=== PATIENT | male | born 1990 | race Caucasian/White ===

== ENCOUNTER 2016-10-01 07:18 | Emergency (ER) | payer OTHER | END 2016-10-01 08:26 | disposition home or self-care (01) | LOC: D.ER 07:18 | DX: J01.90 Acute sinusitis, unspecified (principal); F17.200 Nicotine dependence, unspecified, uncomplicated ==

== ENCOUNTER 2016-12-12 08:12 | Emergency (ER) | payer OTHER | END 2016-12-12 10:19 | disposition home or self-care (01) | LOC: D.ER 08:12 | DX: S60.011A Contusion of right thumb without damage to nail, initial encounter (principal); X58.XXXA Exposure to other specified factors, initial encounter; Y93.89 Activity, other specified; Y92.89 Other specified places as the place of occurrence of the external cause; S60.511A Abrasion of right hand, initial encounter; F17.200 Nicotine dependence, unspecified, uncomplicated ==

== ENCOUNTER 2017-01-02 07:36 | Emergency (ER) | payer OTHER | END 2017-01-02 09:26 | disposition home or self-care (01) | LOC: D.ER 07:36 | DX: M54.9 Dorsalgia, unspecified (principal); F17.200 Nicotine dependence, unspecified, uncomplicated ==

== ENCOUNTER 2017-04-08 19:34 | Emergency (ER) | payer OTHER ==
[2017-04-08 20:10] LABS: BASOPHILS 0.3 % (0-2); EOSINOPHILS 1.8 % (0-7); HEMATOCRIT 46.9 % (42.0-54.0); HEMOGLOBIN 16.5 g/dL (13.5-17.5); IMMATURE GRANULOCYTES 0.2 % (0-5); LYMPHOCYTES 23.4 % (15-50); MCH 32.3 pg (26.0-34.0); MCHC 35.2 g/dL (31.0-37.0); MCV 91.8 fL (80.0-100.0); MEAN PLATELET VOLUME 9.8 fL (7.4-10.4); MONOCYTES 4.9 % (2-11); NEUTROPHILS 69.4 % (40-80); PLATELET COUNT 212 10x3/uL (130-400); RBC 5.11 10x6/uL (4.20-6.10); RDW 11.9 % (11.5-14.5); WBC 9.1 10x3/uL (4.8-10.8)
[2017-04-08 20:24] LABS: ALBUMIN 4.3 g/dL (3.4-5.0); ALKALINE PHOSPHATASE 97 U/L (46-116); ALT (SGPT) 25 U/L (10-68); BILIRUBIN - TOTAL 0.49 mg/dL (0.2-1.3); CALC OSMOLALITY 280 mosm/kg (275-300); CALCIUM 8.8 mg/dL (8.5-10.1); CARBON DIOXIDE 31.3 mmol/L (21.0-32.0); CHLORIDE - SERUM 103 mmol/L (98-107); CREATININE - SERUM 0.9 mg/dL (0.6-1.3); GLUCOSE 94 mg/dL (74-106); POTASSIUM - SERUM 3.6 mmol/L (3.5-5.1); PROTEIN - SERUM 7.2 g/dL (6.4-8.2); SODIUM 141 mmol/L (136-145); UREA NITROGEN 12 mg/dL (7-18); eGFR NON AFRICAN AMERICAN > 90 mL/min (90-120)
== END 2017-04-08 23:20 | disposition home or self-care (01) ==
LOC: D.ER 19:34
PROVIDERS: Family Medicine
DX: M54.2 Cervicalgia (principal); V49.49XA Driver injured in collision with other motor vehicles in traffic accident, initial encounter; Y93.89 Activity, other specified; Y92.410 Unspecified street and highway as the place of occurrence of the external cause; M54.9 Dorsalgia, unspecified

== ENCOUNTER 2017-06-12 13:22 | Emergency (ER) | payer OTHER ==
[2017-06-12 13:50] LABS: APPEARANCE CLEAR (CLEAR); BACTERIA MODERATE /hpf (NONE SEEN); BILIRUBIN NEGATIVE (NEGATIVE); COLOR DK YELLOW (YELLOW); EPITHELIAL CELLS OCC /hpf (0-5); GLUCOSE NEGATIVE (NEGATIVE); KETONE NEGATIVE (NEGATIVE); MUCUS >1+ /lpf (NONE SEEN); NITRITE NEGATIVE (NEGATIVE); PROTEIN TRACE mg/dL (NEGATIVE); RED CELLS - URINE OCC /hpf (0-5); SPECIFIC GRAVITY 1.015 (1.005-1.020); WHITE CELLS - URINE 0-5 /hpf (0-5)
[2017-06-12 13:55] LABS: UDS - AMPHET NEGATIVE QUAL (NEGATIVE); UDS - BARB NEGATIVE QUAL (NEGATIVE); UDS - BENZO POSITIVE QUAL (NEGATIVE); UDS - COCAINE NEGATIVE QUAL (NEGATIVE); UDS - OPIATE NEGATIVE QUAL (NEGATIVE); UDS - PCP NEGATIVE QUAL (NEGATIVE); UDS - THC POSITIVE QUAL (NEGATIVE)
== END 2017-06-12 14:13 | disposition home or self-care (01) ==
LOC: D.ER 13:22
PROVIDERS: Emergency Medicine
DX: F43.23 Adjustment disorder with mixed anxiety and depressed mood (principal); Z91.5 Personal history of self-harm; F17.200 Nicotine dependence, unspecified, uncomplicated

== ENCOUNTER 2017-06-18 08:40 | Emergency (ER) | payer OTHER ==
[2017-06-18 09:14] LABS: APPEARANCE HAZY (CLEAR); BILIRUBIN NEGATIVE (NEGATIVE); COLOR YELLOW (YELLOW); GLUCOSE NEGATIVE (NEGATIVE); KETONE NEGATIVE (NEGATIVE); NITRITE NEGATIVE (NEGATIVE); PROTEIN NEGATIVE (NEGATIVE); SPECIFIC GRAVITY 1.015 (1.005-1.020); UROBILINOGEN NORMAL (NORMAL)
[2017-06-18 09:19] LABS: BASOPHILS 0.2 % (0-2); EOSINOPHILS 2.2 % (0-7); HEMATOCRIT 48.3 % (42.0-54.0); HEMOGLOBIN 17.1 g/dL (13.5-17.5); IMMATURE GRANULOCYTES 0.2 % (0-5); LYMPHOCYTES 22.3 % (15-50); MCH 32.3 pg (26.0-34.0); MCHC 35.4 g/dL (31.0-37.0); MCV 91.3 fL (80.0-100.0); MEAN PLATELET VOLUME 9.5 fL (7.4-10.4); MONOCYTES 6.7 % (2-11); NEUTROPHILS 68.4 % (40-80); PLATELET COUNT 221 10x3/uL (130-400); RBC 5.29 10x6/uL (4.20-6.10); RDW 12.4 % (11.5-14.5); WBC 8.8 10x3/uL (4.8-10.8)
[2017-06-18 09:35] LABS: ALBUMIN 4.4 g/dL (3.4-5.0); ALKALINE PHOSPHATASE 110 U/L (46-116); ALT (SGPT) 66 U/L (10-68); BILIRUBIN - TOTAL 0.56 mg/dL (0.2-1.3); CALC OSMOLALITY 272 mosm/kg (275-300); CALCIUM 9.6 mg/dL (8.5-10.1); CARBON DIOXIDE 28.6 mmol/L (21.0-32.0); CHLORIDE - SERUM 101 mmol/L (98-107); CREATININE - SERUM 0.8 mg/dL (0.6-1.3); GLUCOSE 99 mg/dL (74-106); POTASSIUM - SERUM 3.7 mmol/L (3.5-5.1); PROTEIN - SERUM 7.8 g/dL (6.4-8.2); SODIUM 138 mmol/L (136-145); UREA NITROGEN 5 mg/dL (7-18); eGFR NON AFRICAN AMERICAN > 90 mL/min (90-120)
[2017-06-18 09:51] LABS: UDS - AMPHET NEGATIVE QUAL (NEGATIVE); UDS - BARB NEGATIVE QUAL (NEGATIVE); UDS - BENZO POSITIVE QUAL (NEGATIVE); UDS - COCAINE NEGATIVE QUAL (NEGATIVE); UDS - OPIATE POSITIVE QUAL (NEGATIVE); UDS - PCP NEGATIVE QUAL (NEGATIVE); UDS - THC POSITIVE QUAL (NEGATIVE)
== END 2017-06-18 15:54 | disposition short-term general hospital (02) ==
LOC: D.ER 08:40
PROVIDERS: Emergency Medicine
DX: R45.851 Suicidal ideations (principal); F17.200 Nicotine dependence, unspecified, uncomplicated

== ENCOUNTER → 2018-05-26 11:20 | Outpatient (CLI) | payer OTHER | END | disposition home or self-care (01) | LOC: D.CT 11:20 | DX: R07.89 Other chest pain (principal) ==

== ENCOUNTER 2018-06-13 20:49 | Emergency (ER) | payer OTHER ==
[~2018-06-13] VITALS: Ht 177.8 cm; Wt 79.5 kg
[2018-06-13 20:51] VITALS: Ht 177.8 cm; Wt 79.5 kg
[2018-06-13] MEDS ORDERED: ULTRAM50 MG (20:52)
[2018-06-13] MEDS ORDERED: ADVIL200 MG (20:52)
[2018-06-13] MEDS ORDERED: ROBAXIN500 MG (20:53)
[2018-06-13 21:12] LABS: BASOPHILS 0.4 % (0-2); EOSINOPHILS 1.8 % (0-7); HEMOGLOBIN 17.2 g/dL (13.5-17.5); IMMATURE GRANULOCYTES 0.1 % (0-5); LYMPHOCYTES 36.6 % (15-50); MCH 32.5 pg (26.0-34.0); MCHC 35.8 g/dL (31.0-37.0); MCV 90.6 fL (80.0-100.0); MEAN PLATELET VOLUME 9.1 fL (7.4-10.4); NEUTROPHILS 55.1 % (40-80); PLATELET COUNT 216 10x3/uL (130-400); RDW 12.3 % (11.5-14.5); WBC 7.2 10x3/uL (4.8-10.8)
[2018-06-13 21:37] LABS: ALBUMIN 4.4 g/dL (3.4-5.0); ALKALINE PHOSPHATASE 91 U/L (46-116); ALT (SGPT) 28 U/L (10-68); BILIRUBIN - TOTAL 0.51 mg/dL (0.2-1.3); CALC OSMOLALITY 280 mosm/kg (275-300); CALCIUM 9.1 mg/dL (8.5-10.1); CARBON DIOXIDE 26.8 mmol/L (21.0-32.0); CHLORIDE - SERUM 104 mmol/L (98-107); CREATININE - SERUM 0.9 mg/dL (0.6-1.3); GLUCOSE 87 mg/dL (74-106); POTASSIUM - SERUM 3.6 mmol/L (3.5-5.1); PROTEIN - SERUM 7.5 g/dL (6.4-8.2); SODIUM 142 mmol/L (136-145); UREA NITROGEN 10 mg/dL (7-18); eGFR NON AFRICAN AMERICAN > 90 mL/min (90-120)
[2018-06-13 22:12] LABS: APPEARANCE CLEAR (CLEAR); COLOR YELLOW (YELLOW)
[2018-06-13 22:13] LABS: BILIRUBIN NEGATIVE (NEGATIVE); GLUCOSE NEGATIVE (NEGATIVE); KETONE NEGATIVE (NEGATIVE); NITRITE NEGATIVE (NEGATIVE); PROTEIN NEGATIVE (NEGATIVE); SPECIFIC GRAVITY 1.005 (1.005-1.020); UROBILINOGEN NORMAL (NORMAL)
[2018-06-13 22:22] LABS: UDS - AMPHET NEGATIVE QUAL (NEGATIVE); UDS - BARB NEGATIVE QUAL (NEGATIVE); UDS - BENZO NEGATIVE QUAL (NEGATIVE); UDS - COCAINE NEGATIVE QUAL (NEGATIVE); UDS - OPIATE NEGATIVE QUAL (NEGATIVE); UDS - PCP NEGATIVE QUAL (NEGATIVE); UDS - THC POSITIVE QUAL (NEGATIVE)
[2018-06-13 22:54] VITALS: BP 146/79
== END 2018-06-13 22:54 | disposition home or self-care (01) ==
LOC: D.ER 20:49
PROVIDERS: Family Medicine
DX: R41.82 Altered mental status, unspecified (principal); F10.129 Alcohol abuse with intoxication, unspecified; S00.83XA Contusion of other part of head, initial encounter; S80.10XA Contusion of unspecified lower leg, initial encounter; X58.XXXA Exposure to other specified factors, initial encounter; Y93.89 Activity, other specified; Y92.89 Other specified places as the place of occurrence of the external cause; F17.200 Nicotine dependence, unspecified, uncomplicated

== ENCOUNTER 2019-04-11 12:59 | Emergency (ER) | payer SELFPAY ==
[~2019-04-11] VITALS: Ht 177.8 cm; Wt 90.0 kg
[~2019-04-11 12:59] MED LIST: ADVIL200 MG; ROBAXIN500 MG; ULTRAM50 MG
[2019-04-11 13:11] VITALS: Ht 177.8 cm; Wt 90.0 kg
[2019-04-11] MEDS ORDERED: CYCLOBENZAPRINE10 MG PO (14:19)
[2019-04-11] MEDS ORDERED: VOLTAREN75 MG PO (14:19)
[2019-04-11 15:36] VITALS: BP 110/83
== END 2019-04-11 15:34 | disposition home or self-care (01) ==
LOC: D.ER 12:59
DX: M54.6 Pain in thoracic spine (principal); M54.5 Low back pain

== ENCOUNTER 2019-05-02 08:48 | Emergency (ER) | payer MEDICAID ==
[2019-04-11 13:11] VITALS: Ht 177.8 cm
[~2019-05-02 08:48] MED LIST changes: +CYCLOBENZAPRINE10 MG PO; +VOLTAREN75 MG PO
[2019-05-02 09:13] LABS: BASOPHILS 0.4 % (0-2); EOSINOPHILS 1.5 % (0-7); HEMATOCRIT 46.2 % (42.0-54.0); HEMOGLOBIN 16.7 g/dL (13.5-17.5); IMMATURE GRANULOCYTES 0.3 % (0-5); LYMPHOCYTES 24.9 % (15-50); MCH 32.5 pg (26.0-34.0); MCHC 36.1 g/dL (31.0-37.0); MCV 89.9 fL (80.0-100.0); MEAN PLATELET VOLUME 9.3 fL (7.4-10.4); MONOCYTES 5.2 % (2-11); NEUTROPHILS 67.7 % (40-80); PLATELET COUNT 237 10x3/uL (130-400); RBC 5.14 10x6/uL (4.20-6.10); RDW 12.9 % (11.5-14.5); WBC 7.9 10x3/uL (4.8-10.8)
[2019-05-02 09:28] LABS: ALBUMIN 4.4 g/dL (3.4-5.0); ALKALINE PHOSPHATASE 96 U/L (46-116); ALT (SGPT) 28 U/L (10-68); BILIRUBIN - TOTAL 0.25 mg/dL (0.2-1.3); CALC OSMOLALITY 281 mosm/kg (275-300); CALCIUM 9.3 mg/dL (8.5-10.1); CARBON DIOXIDE 29.4 mmol/L (21.0-32.0); CHLORIDE - SERUM 105 mmol/L (98-107); CREATININE - SERUM 0.8 mg/dL (0.6-1.3); GLUCOSE 95 mg/dL (74-106); POTASSIUM - SERUM 3.8 mmol/L (3.5-5.1); PROTEIN - SERUM 7.6 g/dL (6.4-8.2); SODIUM 142 mmol/L (136-145); UREA NITROGEN 9 mg/dL (7-18); eGFR NON AFRICAN AMERICAN > 90 mL/min (90-120)
[2019-05-02 09:35] LABS: APPEARANCE CLEAR (CLEAR); BILIRUBIN NEGATIVE (NEGATIVE); COLOR STRAW (YELLOW); GLUCOSE NEGATIVE (NEGATIVE); KETONE NEGATIVE (NEGATIVE); NITRITE NEGATIVE (NEGATIVE); PROTEIN NEGATIVE (NEGATIVE); SPECIFIC GRAVITY 1.005 (1.005-1.020); UROBILINOGEN NORMAL (NORMAL)
[2019-05-02 12:11] VITALS: BP 130/80
== END 2019-05-02 12:08 | disposition home or self-care (01) ==
LOC: D.ER 08:48
PROVIDERS: Emergency Medicine
DX: N23 Unspecified renal colic (principal)

== ENCOUNTER 2019-06-22 09:49 | Emergency (ER) | payer MEDICAID ==
[~2019-06-22] VITALS: Ht 177.8 cm; Wt 81.8 kg
[2019-06-22 09:52] VITALS: Ht 177.8 cm; Wt 81.8 kg
[2019-06-22] MEDS ORDERED: CYCLOBENZAPRINE10 MG PO (10:20)
[2019-06-22] MEDS ORDERED: CLEOCIN HCL300 MG PO (10:20)
[2019-06-22] MEDS ORDERED: KEFLEX500 MG PO (10:20)
[2019-06-22] MEDS ORDERED: IBUPROFEN800 MG PO (10:20)
[2019-06-22] MEDS ORDERED: ACETAMINOPHEN500 M1 PO (10:20)
[2019-06-22 11:07] VITALS: BP 125/74
== END 2019-06-22 10:27 | disposition home or self-care (01) ==
LOC: D.ER 09:49
DX: K02.9 Dental caries, unspecified (principal); R51 Headache; F17.210 Nicotine dependence, cigarettes, uncomplicated; K05.10 Chronic gingivitis, plaque induced; J02.9 Acute pharyngitis, unspecified

== ENCOUNTER 2019-08-26 10:38 | Observation (INO) | payer MEDICAID ==
[~2019-08-26] VITALS: Ht 177.8 cm; Wt 61.2 kg
[~2019-08-26 10:38] MED LIST changes: +ACETAMINOPHEN500 M1 PO; +CLEOCIN HCL300 MG PO; +IBUPROFEN800 MG PO; +KEFLEX500 MG PO
[2019-08-26 11:22] LABS: BASOPHILS 0.4 % (0-2); EOSINOPHILS 0.9 % (0-7); HEMATOCRIT 45.3 % (42.0-54.0); IMMATURE GRANULOCYTES 0.2 % (0-5); LYMPHOCYTES 18.6 % (15-50); MCH 32.4 pg (26.0-34.0); MCHC 35.3 g/dL (31.0-37.0); MCV 91.7 fL (80.0-100.0); MEAN PLATELET VOLUME 9.2 fL (7.4-10.4); MONOCYTES 3.9 % (2-11); PLATELET COUNT 249 10x3/uL (130-400); RBC 4.94 10x6/uL (4.20-6.10); RDW 12.3 % (11.5-14.5); WBC 8.5 10x3/uL (4.8-10.8)
[2019-08-26 11:30] LABS: CALC OSMOLALITY 276 mosm/kg (275-300); CALCIUM 8.9 mg/dL (8.5-10.1); CARBON DIOXIDE 25.7 mmol/L (21.0-32.0); CHLORIDE - SERUM 105 mmol/L (98-107); CREATININE - SERUM 0.8 mg/dL (0.6-1.3); GLUCOSE 103 mg/dL (74-106); POTASSIUM - SERUM 3.6 mmol/L (3.5-5.1); SODIUM 140 mmol/L (136-145); UREA NITROGEN 6 mg/dL (7-18); eGFR NON AFRICAN AMERICAN > 90 mL/min (90-120)
[2019-08-26 11:33] LABS: APTT 27.5 SECONDS (22.8-39.4); INR 0.98 (0.85-1.17); PROTIME 12.5 SECONDS (11.6-15.0)
[2019-08-26 11:36] LABS: ALKALINE PHOSPHATASE 87 U/L (46-116); ALT (SGPT) 69 U/L (10-68); BILIRUBIN - TOTAL 0.37 mg/dL (0.2-1.3)
--- NOTE | 2019-08-26 11:47 | NUR ---
REPORT TO JAYESH STARK
[2019-08-26 11:58] VITALS: BP 126/77
--- NOTE | 2019-08-26 12:00 | NUR ---
TRANSPORTED TO ROOM #236, CONDITION STABLE.
[2019-08-26] MEDS ORDERED: METHOCARBAMOL750 MG PO (12:10)
[2019-08-26 13:36] VITALS: BP 124/72
[2019-08-26 17:58] VITALS: BP 131/77; BMI 19.4
[2019-08-26 19:01] LABS: APPEARANCE CLEAR (CLEAR); BILIRUBIN NEGATIVE (NEGATIVE); COLOR YELLOW (YELLOW); GLUCOSE NEGATIVE (NEGATIVE); KETONE NEGATIVE (NEGATIVE); NITRITE NEGATIVE (NEGATIVE); PROTEIN NEGATIVE (NEGATIVE); UROBILINOGEN NORMAL (NORMAL)
[2019-08-26 19:14] LABS: UDS - AMPHET NEGATIVE QUAL (NEGATIVE); UDS - BARB NEGATIVE QUAL (NEGATIVE); UDS - BENZO NEGATIVE QUAL (NEGATIVE); UDS - COCAINE NEGATIVE QUAL (NEGATIVE); UDS - OPIATE POSITIVE QUAL (NEGATIVE); UDS - PCP NEGATIVE QUAL (NEGATIVE); UDS - THC POSITIVE QUAL (NEGATIVE)
--- NOTE | 2019-08-26 20:10 | NUR ---
LYING QUEITLY WITH NO DISTRESS NOTED. RESP EVEN AND UNLABORED.NO COMPALITNS AT PRESENT TIME. SL TO RFA WITHOUT REDNESS OR EDEMA NOTED. CL IN REACH. FAMILY AT BEDSIDE.
[2019-08-26 20:46] VITALS: BP 128/85
[2019-08-27 00:19] VITALS: BP 112/62
--- NOTE | 2019-08-27 03:19 | NUR ---
I have reviewed this patient and I concur with the Shift Assessment completed by the Licensed Practical Nurse today this shift.
[2019-08-27 04:54] VITALS: BP 117/64
[2019-08-27 05:51] LABS: BASOPHILS 0.1 % (0-2); EOSINOPHILS 0.7 % (0-7); HEMATOCRIT 43.8 % (42.0-54.0); HEMOGLOBIN 15.1 g/dL (13.5-17.5); IMMATURE GRANULOCYTES 0.2 % (0-5); MCH 31.9 pg (26.0-34.0); MCHC 34.5 g/dL (31.0-37.0); MCV 92.6 fL (80.0-100.0); MEAN PLATELET VOLUME 9.3 fL (7.4-10.4); MONOCYTES 6.1 % (2-11); NEUTROPHILS 74.9 % (40-80); PLATELET COUNT 245 10x3/uL (130-400); RBC 4.73 10x6/uL (4.20-6.10); RDW 12.2 % (11.5-14.5)
[2019-08-27 06:04] LABS: WBC 11.8 10x3/uL (4.8-10.8)
[2019-08-27 06:15] LABS: ALBUMIN 3.9 g/dL (3.4-5.0); ALKALINE PHOSPHATASE 85 U/L (46-116); BILIRUBIN - TOTAL 0.42 mg/dL (0.2-1.3); CALC OSMOLALITY 271 mosm/kg (275-300); CALCIUM 8.8 mg/dL (8.5-10.1); CHLORIDE - SERUM 104 mmol/L (98-107); CREATININE - SERUM 0.7 mg/dL (0.6-1.3); GLUCOSE 99 mg/dL (74-106); POTASSIUM - SERUM 3.5 mmol/L (3.5-5.1); PROTEIN - SERUM 6.7 g/dL (6.4-8.2); SODIUM 137 mmol/L (136-145); UREA NITROGEN 8 mg/dL (7-18); eGFR NON AFRICAN AMERICAN > 90 mL/min (90-120)
[2019-08-27 06:16] LABS: ALT (SGPT) 93 U/L (10-68)
--- NOTE | 2019-08-27 07:49 | NUR ---
RESTING IN BED, C/O PAIN, TIME FOR MUSCLE RELAXER ALSO, STATES THAT PAIN IS IN THIS LOWER BACK AND PELVIC AREA, C/O TINGLING TO UPPER THIGHS, CONT TO MONITOR
[2019-08-27 08:21] VITALS: BP 125/72
[2019-08-27 12:07] VITALS: Ht 177.8 cm; Wt 61.2 kg
[2019-08-27] MEDS ORDERED: MIRALAX17 GM PO (12:08)
[2019-08-27 12:50] LABS: ERYTHROCYTE SEDIMENTATION RATE 2 mm/hr (0-15)
--- NOTE | 2019-08-27 13:35 | NUR ---
1310 DISCUSSED D/C WITH PT, VOICED NO CONCERNS, REMOVED IV, TIP INTACT, WALKED TO LOBBY TO TAXI
== END 2019-08-27 13:39 | disposition home or self-care (01) ==
LOC: D.ER 10:38 → OBSVTIME 11:07 → D.MS 11:07
PROVIDERS: Family Medicine; ADMIT Internal Medicine Nephrology; ATTEND Internal Medicine Nephrology
DX: M54.89 Other dorsalgia (principal); X50.0XXA Overexertion from strenuous movement or load, initial encounter

== ENCOUNTER 2020-02-14 07:59 | Emergency (ER) | payer MEDICAID ==
[~2020-02-14] VITALS: Ht 177.8 cm; Wt 86.4 kg
[~2020-02-14 07:59] MED LIST changes: +METHOCARBAMOL750 MG PO; +MIRALAX17 GM PO
[2020-02-14 08:06] VITALS: Ht 177.8 cm; Wt 86.4 kg
[2020-02-14] MEDS ORDERED: PREDNISONE20 MG PO (10:13)
[2020-02-14 10:30] VITALS: BP 125/81
== END 2020-02-14 10:30 | disposition home or self-care (01) ==
LOC: D.ER 07:59
DX: J02.9 Acute pharyngitis, unspecified (principal); G43.909 Migraine, unspecified, not intractable, without status migrainosus; Z72.0 Tobacco use; R07.0 Pain in throat

== ENCOUNTER 2020-03-12 07:09 | Emergency (ER) | payer MEDICAID ==
[~2020-03-12] VITALS: Ht 177.8 cm; Wt 83.6 kg
[~2020-03-12 07:09] MED LIST changes: +PREDNISONE20 MG PO
[2020-03-12 07:14] VITALS: Ht 177.8 cm; Wt 83.6 kg
[2020-03-12] MEDS ORDERED: NAPROSYN500 MG PO (07:44)
[2020-03-12] MEDS ORDERED: PREDNISONE20 MG PO (07:44)
[2020-03-12] MEDS ORDERED: TYLENOL #4 W/CO1 TAB PO (07:44)
[2020-03-12 07:58] VITALS: BP 115/88
== END 2020-03-12 07:51 | disposition home or self-care (01) ==
LOC: D.ER 07:09
DX: S86.911A Strain of unspecified muscle(s) and tendon(s) at lower leg level, right leg, initial encounter (principal); M77.9 Enthesopathy, unspecified; W50.0XXA Accidental hit or strike by another person, initial encounter; Y93.9 Activity, unspecified; Y92.9 Unspecified place or not applicable